=== PATIENT | female | born 1995 | race Caucasian/White ===

== ENCOUNTER 2019-10-28 15:45 | Emergency (ER) | payer BC, OTHER ==
[2019-10-28 16:14] VITALS: TEMP 100.2
[2019-10-28] MEDS ORDERED: IBUPROFEN 800 MG TAB PO STA (16:46)
[2019-10-28] MEDS ORDERED: IPRATROPIUM-ALBUTEROL 3 ML NEB INHALATION STA (16:46)
[2019-10-28] MEDS ORDERED: ACETAMINOPHEN TAB 500 MG TAB PO STA (16:46)
[2019-10-28 17:05] VITALS: RESP 16
--- NOTE | 2019-10-28 17:15 | ED ---
URI HPI - General Chief Complaint: Upper Respiratory Infection Stated Complaint: Sinus infection Time Seen by Provider: 10/28/19 16:20 Source: patient, RN notes reviewed, old records reviewed Mode of arrival: ambulatory Limitations: no limitations - History of Present Illness Initial Comments: This is a 23-year-old female here with upper respiratory type infections cough congestion no shortness of breath she does admit to fever non no nausea vomiting or diarrhea. Patient is admitted body aches and pains. No known significant sick contacts or recent hospitalizations. No significant medical history MD Complaint: fever, cough -: days(s) Severity: moderate Severity scale (1-10): 6 Quality: aching Consistency: intermittent Improves With: OTC cold medicine Worsens With: nothing Associated Symptoms: fever, myalgias, cough, nausea Treatments Prior to Arrival: none - Related Data Allergies Allergy/AdvReac Type Severity Reaction Status Date / Time pine nut Allergy Cough Verified 10/28/19 16:15 bacitracin AdvReac Rash/Hives Verified 10/28/19 16:15 [From Neosporin ([id number])] neomycin AdvReac Rash/Hives Verified 10/28/19 16:15 [From Neosporin ([id number])] polymyxin B AdvReac Rash/Hives Verified 10/28/19 16:15 [From Neosporin ([id number])] Review of Systems ROS Statement: Those systems with pertinent positive or pertinent negative responses have been documented in the HPI. ROS Other: All systems not noted in ROS Statement are negative. Past Medical History Past Medical History: Asthma History of Any Multi-Drug Resistant Organisms: None Reported Additional Past Surgical History / Comment(s): left breast biopsy Past Psychological History: No Psychological Hx Reported Smoking Status: Never smoker Past Alcohol Use History: Occasional Past Drug Use History: Marijuana General Exam Limitations: no limitations General appearance: alert, in no apparent distress Head exam: Present: atraumatic, normocephalic, normal inspection Eye exam: Present: normal appearance, PERRL, EOMI. Absent: scleral icterus, co njunctival injection, periorbital swelling ENT exam: Present: normal exam, mucous membranes moist Neck exam: Present: normal inspection. Absent: tenderness, meningismus, lymphadenopathy Respiratory exam: Present: normal lung sounds bilaterally. Absent: respiratory distress, wheezes, rales, rhonchi, stridor Cardiovascular Exam: Present: regular rate, normal rhythm, normal heart sounds. Absent: systolic murmur, diastolic murmur, rubs, gallop, clicks GI/Abdominal exam: Present: soft, normal bowel sounds. Absent: distended, tenderness, guarding, rebound, rigid Extremities exam: Present: normal inspection, full ROM, normal capillary refill. Absent: tenderness, pedal edema, joint swelling, calf tenderness Back exam: Present: normal inspection Neurological exam: Present: alert, oriented X3, CN II-XII intact Psychiatric exam: Present: normal affect, normal mood Skin exam: Present: warm, dry, intact, normal color. Absent: rash Course Vital Signs 10/28/19 10/28/19 10/28/19 16:10 17:02 17:05 Temperature 100.2 F H Pulse Rate 77 76 Respiratory 18 16 Rate Blood Pressure 139/70 O2 Sat by Pulse 96 Oximetry 10/28/19 10/28/19 17:20 18:06 Temperature Pulse Rate 80 76 Respiratory 16 Rate Blood Pressure 135/71 O2 Sat by Pulse 99 Oximetry Medical Decision Making - Medical Decision Making 23 female ER with body aches and pains positive. For was a here in the ER no cough or congestion or shortness of breath no nausea vomiting or diarrhea. Patient will continue supportive care at home Motrin and Tylenol for fever fluid hydration and rest - Lab Data Lab Results 10/28/19 Range/Units 16:52 Influenza Type A RNA Not Detected (Not Detectd) Influenza Type B (PCR) Detected H (Not Detectd) Disposition Clinical Impression: Influenza Disposition: HOME SELF-CARE Condition: Good Instructions (If sedation given, give patient instructions): Influenza (ED) Is patient prescribed a controlled substance at d/c from ED?: No Referrals: None,Stated [Primary Care Provider] - 1-2 days
--- NOTE | 2019-10-28 17:18 | XR ---
EXAMINATION TYPE: XR chest 2V DATE OF EXAM: 10/28/2019 COMPARISON: NONE HISTORY: Cough TECHNIQUE: 2 views FINDINGS: Heart and mediastinum are normal. Lungs are clear. Diaphragm is normal. Bony thorax appears normal. IMPRESSION: Normal chest.
[2019-10-28] MEDS ORDERED: DEXAMETHASONE SOD PHOSPHATE 10 MG/ML 1 ML VIAL IM STA (17:51)
[2019-10-28 18:07] VITALS: BP 135/71; PULSE 76
== END 2019-10-28 18:06 | disposition home or self-care (01) ==
LOC: EC 15:45
DX: J11.1 Influenza due to unidentified influenza virus with other respiratory manifestations (principal); Z91.018 Allergy to other foods; Z88.1 Allergy status to other antibiotic agents
CPT/HCPCS: 94640; 87502; 71046; 99284; 96372; J1100